=== PATIENT | female | born 1965 | race African-American/Black ===

== ENCOUNTER 2016-09-16 08:09 | Emergency (ER) | payer BC ==
[2016-09-16 08:16] VITALS: BP 140/90; PULSE 85; TEMP 98.5; BMI 32.9
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
[2016-09-16] MEDS ORDERED: IBUPROFEN 400 MG TABLET (FP) PO ONE (08:26)
[2016-09-16] MEDS ORDERED: IBUPROFEN 600 MG TABLET (FP) PO ONE (08:37)
== END 2016-09-16 10:06 | disposition home or self-care (01) ==
LOC: FER 08:09
DX: S80.01XA Contusion of right knee, initial encounter (principal); W17.2XXA Fall into hole, initial encounter; Y93.89 Activity, other specified; Y92.522 Railway station as the place of occurrence of the external cause; Z87.891 Personal history of nicotine dependence; J45.909 Unspecified asthma, uncomplicated; E07.9 Disorder of thyroid, unspecified
CPT/HCPCS: 73562-TC-RT; 99281-25